=== PATIENT | female | born 1945 | race Caucasian/White ===

== ENCOUNTER 2016-10-28 06:22 | Inpatient (IN) | payer MEDICARE, OTHER ==
[~2016-10-28] VITALS: Ht 157.5 cm; Wt 84.0 kg
--- NOTE | ~2016-10-28 | DS ---
Unit #: [id number] #: [id number] Patient: ANITA MENDEZ [id number] [address] [address] [id number] I MR#: [id number] NAME: ANITA MENDEZ ROOM: 548 Age: 70 Sex: F Admission Date: 10/29/2016 : 1945 Discharge Date: 11/01/2016 Attending Physician: Devonte Lugo M.D. Primary Care Physician: Yazan Hernandez Jr., M.D. DISCHARGE SUMMARY FINAL DIAGNOSES 1. Rhabdomyolysis. 2. Generalized weakness. 3. Anemia. 4. Hypokalemia. 5. Hyponatremia. 6. SIRS secondary to evidence of infection. 7. Debilities. SECONDARY DIAGNOSES 1. Chronic obstructive pulmonary disease. 2. Rheumatoid arthritis. 3. Adrenal insufficiency. CONSULTANTS None. HOSPITAL COURSE Pleasant 70-year-old female, who had multiple falls at home who was seen and evaluated and admitted. She was diagnosed with rhabdomyolysis and hyponatremia. She was admitted and managed with IV fluids and electrolyte replacement. She was evaluated by therapy and deemed to be a good candidate for subacute rehab. Today was the day of discharge, her potassium is still at 3.2 at the time of this dictation. She will be given 40 mCi of potassium now and 40 at noon, and will transfer to rehab. Her potassium will be monitored at the rehab facility. Her magnesium level has been otherwise normal and is currently within normal limits. She will be discharged in stable condition. She still is a negative 9.6. MEDICATIONS ON DISCHARGE Will include: 1. DuoNebs every 2 hours p.r.n. shortness of breath 2. Proventil HFA two puffs q.4h p.r.n. 3. Florinef 0.5 mg p.o. daily 4. Flonase nasal two sprays in nostril daily 5. Hydrocortisone 10 mg p.o. daily 6. Spiriva one inhalation daily 7. Lovenox 40 mg subcu daily 8. Cymbalta 30 mg p.o. twice daily 9. Trazodone 150 mg at bedtime 10. Claritin 10 mg p.o. daily 11. Mirapex 0.125 mg p.o. at bedtime 12. Xanax 1 mg p.o. three times a day p.r.n. Unit #: [id number] #: [id number] Patient: ANITA MENDEZ 13. Dulera 200 mcg/5 two puffs inhalation twice daily 14. Norvasc 10 mg p.o. daily 15. Lopressor 25 mg p.o. twice daily 16. Colace 100 mg p.o. b.i.d. 17. MiraLAX 17 grams p.o. daily p.r.n. 18. Azelastine two sprays each nostril daily 19. Singulair 10 mg p.o. daily 20. Tramadol 50 mg p.o. daily p.r.n. pain 21. Nexium 40 mg p.o. daily I recommend a CBC and a BMP on 11/03/16 and this should be addressed by primary attending. Time spent coordinating discharge was about thirty-one minutes. Dictated by... Octaviano Rodriguez TD: 11/01/2016 13:51 JOB #: [id number] DISCHARGE SUMMARY Page 1 of 1 X Tracy Lee MD X DISCHARGE SUMMARY
--- NOTE | ~2016-10-28 | CR243 ---
[facility] A Service of [facility] & [facility] / [facility] RADIOLOGY TEXT RESULTS PATIENT: ANITA MENDEZ LOCATION: [facility] 548- : 45 UNIT #: [id number] AGE: [address]: Devonte Lugo MD SEX: F ORDER DR: [id number] [facility] [address] [facility] [place], [place] [address] [id number] I MR#: [id number] Acc #: [id number] NAME: ANITA MENDEZ : 1945 SEX: F STUDY DATE/TIME: 10/28/2016 8:06 UNIT: [facility] ROOM: 53631 STUDY DESCRIPTION: CR Thoracic Spine 3 Views Attending Physician: Kole Gao M.D. Ordering Physician: Zuhair Lemus M.D. Primary Care Physician: Yazan Hernandez Jr., M.D. MEDICAL IMAGING REPORT This report is preliminary unless electronic signature is present EXAM Thoracic spine series, 10/28/2016 HISTORY Fall. Pain mid/lower back, hips. Prior left hip replacement. Yesterday morning fell out of bed. Cough. FINDINGS AP and lateral views of the thoracic spine are presented. No traumatic fracture or malalignment. Vertebral body heights and intervertebral disc space heights are within normal limits. The visualized upper lumbar and lower cervical spine are unremarkable. The central lung zones appear clear. Cardiomediastinal contours within normal limits to visualized extent. Multiple surgical clips in the upper abdomen. Dictated by... Grey Stein M.D. THIS IS AN ELECTRONICALLY VERIFIED REPORT Grey Stein M.D. at 10/29/2016 7:09 PM STACEY/griselda TD: 10/28/2016 15:01 JOB #: [id number] MEDICAL IMAGING REPORT Page 1 of 1 COPY
--- NOTE | ~2016-10-28 | CR206 ---
[facility] A Service of [facility] & [facility] RADIOLOGY TEXT RESULTS PATIENT: ANITA MENDEZ LOCATION: [facility] : 45 UNIT #: [id number] AGE: [address]: Devonte Lugo MD SEX: F ORDER DR: [id number] [facility] [address] [facility] [place], [place] [address] [id number] I MR#: [id number] Acc #: [id number] NAME: ANITA MENDEZ : 1945 SEX: F STUDY DATE/TIME: 10/28/2016 8:03 UNIT: [facility] ROOM: 02060 STUDY DESCRIPTION: CR Pelvis 1 or 2 Views Attending Physician: Kole Gao M.D. Ordering Physician: Alaln Pollard Primary Care Physician: Yazan Hernandez Jr., M.D. MEDICAL IMAGING REPORT This report is preliminary unless electronic signature is present EXAM Pelvis series HISTORY Pain. Mid lower back hips history hip replacement yesterday morning. Fell out of bed, cough, hypoglycemic, asthma, left hip replacement. FINDINGS AP radiographs of the pelvis are presented. Degenerative changes lower lumbar spine. Bony ring of pelvis intact. Bilateral proximal femurs show no acute traumatic fracture. Prior orthopedic intervention proximal left femur with 2 fixation screws present. Mild narrowing bilateral hip joints. Periarticular soft tissues unremarkable. Atherosclerotic arterial calcifications. Visualized bowel gas pattern normal. Dictated by... Grey Stein M.D. THIS IS AN ELECTRONICALLY VERIFIED REPORT Grey Stein M.D. at 10/29/2016 7:09 PM STACEY/greg TD: 10/28/2016 14:32 JOB #: [id number] MEDICAL IMAGING REPORT Page 1 of 1 COPY
--- NOTE | ~2016-10-28 | HP ---
Unit #: [id number] #: [id number] Patient: ANITA MENDEZ [id number] [address] [address] [id number] I MR#: [id number] NAME: ANITA MENDEZ ROOM: 61571 Age: 70 Sex: F Admission Date: 10/28/2016 : 1945 Attending Physician: Mary Grace aGo M.D. Primary Care Physician: Yazan Hernandez Jr., M.D. HISTORY AND PHYSICAL CHIEF COMPLAINT Fall. HISTORY OF PRESENT ILLNESS The patient is a 70-year-old female with a history of a leaky valves, emphysema, arthritis, depression, anxiety, presented to the emergency room status post fall. 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 The patient fell off the bed on the floor. The patient was on the floor for approximately 23 to 24 hours. The patient was not able to reach the phone to call her daughter. The patient was found on the floor and brought to the emergency room by her daughter. The patient was found to be in acute rhabdomyolysis with a CK of 1663 and is being admitted for the above reasons. Denies any fever. Denies any chills. Denies any nausea and vomiting. PAST MEDICAL HISTORY 1. Anemia. 2. Leaky valves. 3. Emphysema. 4. Rheumatoid arthritis. 5. Depression. 6. Anxiety. PAST SURGICAL HISTORY 1. Gastric bypass. 2. Repair of gallbladder surgery. 3. Hernia. 4. Left hip fracture repair. SOCIAL HISTORY The patient denies a history of smoking, alcohol, or any illicit drug abuse. FAMILY HISTORY Reviewed and none. ALLERGIES No known drug allergies. HOME MEDICATIONS 1. Cortef. 2. Ultram. 3. Florinef. Unit #: [id number] #: [id number] Patient: ANITA MENDEZ 4. Desyrel. 5. Remeron. 6. Cymbalta. REVIEW OF SYSTEMS Positive for soreness of the muscles. Positive for fall. Negative for chills. Negative for shortness of breath. Negative for nausea and vomiting. All other systems have been reviewed and are none. PHYSICAL EXAMINATION GENERAL: Patient is lying in bed not in acute distress. VITAL SIGNS: Temperature 98.5, pulse 108, respiratory rate 21, blood pressure 131/76, saturating 97% at room air. HEENT: Head atraumatic, normocephalic. Pupils equal, round, and reactive to light and accommodation. Extraocular movements are intact. Dry mucous membranes. NECK: Supple. No jugular venous distention. LUNGS: Decreased air entry at the bases. HEART: Regular rate and rhythm. ABDOMEN: Soft. Positive bowel sounds. EXTREMITIES: No cyanosis. No clubbing. NEUROLOGIC: Alert, awake, oriented. No gross focal motor deficit. PSYCHIATRIC: Mood and affect are appropriate. DIAGNOSTIC STUDIES LABORATORY: WBC 11.3, hemoglobin 11.4, hematocrit 34.5, platelets 236,000. CPK 1663. Sodium 132, potassium 4.3, chloride 96, bicarb 22, glucose 105, BUN 13, creatinine 1.3, calcium 9.3, AST 61, ALT 24, alkaline phosphatase 41. IMAGING: Chest x-ray is negative. ASSESSMENT 1. Status post fall. 2. Rhabdomyolysis. 3. Hyponatremia. PLAN Admit the patient to observation with telemetry. Continue with IV fluids and repeat the CPK level. X-rays of the thoracic spine and lumbar spine are negative. Further recommendations will follow. Dictated by Octaviano Chen TD: 10/28/2016 15:55 JOB #: [id number] Unit #: [id number] #: [id number] Patient: ANITA MENDEZ HISTORY AND PHYSICAL Page 1 of 1 X MARY GRACE GAO MD X HISTORY AND PHYSICAL
--- NOTE | ~2016-10-28 | CR72 ---
[facility] A Service of [facility] & [facility] RADIOLOGY TEXT RESULTS PATIENT: ANITA MENDEZ LOCATION: [facility] 54- : 45 UNIT #: [id number] AGE: [address]: Devonte Lugo MD SEX: F ORDER DR: [id number] [facility] [address] [facility]. [place], [place] [address] [id number] I MR#: [id number] Acc #: [id number] NAME: ANITA MENDEZ : 1945 SEX: F STUDY DATE/TIME: 10/29/2016 12:07 UNIT: [facility] ROOM: [facility] STUDY DESCRIPTION: CR Chest Single View Portable Attending Physician: Devonte Lugo M.D. Ordering Physician: Sara Jo A.P.R.N. Primary Care Physician: Yazan Hernandez Jr., M.D. MEDICAL IMAGING REPORT This report is preliminary unless electronic signature is present EXAM Chest, portable; 10/29/2016, 1207 hours. CLINICAL HISTORY Shortness of air with cough today. History of hypertension and asthma. COMPARISON 10/28/2016 FINDINGS Portable upright film demonstrates slightly lower lung volumes than on yesterday's exam. Heart size is normal. Stable tortuous atherosclerotic aorta. There are benign calcified nodes at the right hilum. Hilar contours otherwise normal. The lungs are clear and there are no effusions. IMPRESSION The lower lung volumes than on yesterday's film. No acute cardiopulmonary findings. Dictated by... Valeria Estrella M.D. THIS IS AN ELECTRONICALLY VERIFIED REPORT Valeria Estrella M.D. at 10/30/2016 9:30 AM YULI/chicho TD: 10/29/2016 15:25 JOB #: [id number] MEDICAL IMAGING REPORT Page 1 of 1 COPY
--- NOTE | ~2016-10-28 | CR181 ---
[facility] A Service of [facility] & [facility] / [facility] RADIOLOGY TEXT RESULTS PATIENT: ANITA MENDEZ LOCATION: [facility] [address] : 45 UNIT #: [id number] AGE: [address]: Devonte Lugo MD SEX: F ORDER DR: [id number] [facility] [address] [facility] [place], [place] [address] [id number] I MR#: [id number] Acc #: [id number] NAME: ANITA MENDEZ : 1945 SEX: F STUDY DATE/TIME: 10/28/2016 8:05 [facility]: [address] STUDY DESCRIPTION: CR Lumbar Spine 2 or 3 Views Attending Physician: Kole Gao M.D. Ordering Physician: Allan Pollard Primary Care Physician: Yazan Hernandez Jr., M.D. MEDICAL IMAGING REPORT This report is preliminary unless electronic signature is present EXAM Lumbar spine series 10/28/2016 HISTORY Fall, pain mid lower back hips. HISTORY Left hip replacement. Fell out of bed, cough yesterday morning. FINDINGS AP and 3 lateral views of the lumbar spine are presented. Comparison 04/02/2015 CT. No evidence of acute traumatic fracture or malalignment. Degenerative endplate changes at multiple levels. Mild generalized narrowing intervertebral disc spaces. Mild to moderate facet degenerative changes most pronounced L4-L5, L5-S1. Visualized bony ring of pelvis intact. Evidence of prior left hip orthopedic intervention. Visualized orthopedic hardware intact. Multiple surgical clips in the upper abdomen. Visualized bowel gas pattern normal. Small portion of lung bases appear clear. Dictated by... Grey Stein M.D. THIS IS AN ELECTRONICALLY VERIFIED REPORT Grey Stein M.D. at 10/29/2016 7:09 PM STACEY/greg TD: 10/28/2016 14:40 JOB #: [id number] MEDICAL IMAGING REPORT Page 1 of 1 COPY
--- NOTE | ~2016-10-28 | CR72 ---
[facility] A Service of [facility] & [facility] / [facility] RADIOLOGY TEXT RESULTS PATIENT: ANITA MENDEZ LOCATION: [facility] [address] : 45 UNIT #: [id number] AGE: [address]: Devonte Lugo MD SEX: F ORDER DR: [id number] [facility] [address]. [place], [place] [address] [id number] I MR#: [id number] Acc #: [id number] NAME: ANITA MENDEZ : 1945 SEX: F STUDY DATE/TIME: 10/28/2016 7:57 [facility]: [address] STUDY DESCRIPTION: CR Chest Single View Portable Attending Physician: Kole Gao M.D. Ordering Physician: Zuhair [id number] Allan Lemus Primary Care Physician: Yazan Hernandez Jr., M.D. MEDICAL IMAGING REPORT This report is preliminary unless electronic signature is present EXAM Portable chest x-ray 10/28/2016 HISTORY Fall. Yesterday morning. Fell out of bed. Cough. Prior hip replacement. Pain mid and lower back hips. FINDINGS AP radiograph of the chest is presented. Comparison 01/06/2016. Suboptimal examination. Inferolateral left hemithorax not included on field of view. No acute bony abnormality. Heart normal in size. Mildly tortuous thoracic aorta. The lungs are well inflated. No evidence of acute pulmonary disease, pleural effusion or pneumothorax. No suspicious nodule. Dictated by... Grey Stein M.D. THIS IS AN ELECTRONICALLY VERIFIED REPORT Grey Stein M.D. at 10/29/2016 7:09 PM STACEY/greg TD: 10/28/2016 14:30 JOB #: [id number] MEDICAL IMAGING REPORT Page 1 of 1 COPY
[~2016-10-28 06:22] MED LIST: ACARBOSE25 MG PO; ADVAIR 500-501 EACH INH; ALBUTEROL17 GM INH; ALPRAZOLAM1 MG PO; AZOR 5/40 MG TA1 TAB PO; BENADRYL25 M3 PO; FLORINEF0.1 M1 PO; FLUCONAZOLE150 M1 PO; GAS-X80 MG PO; HYDROCORTISONE10 M1 PO; METOPROLOL TAR25 MG PO; MIRTAZAPINE45 MG PO; MONTELUKAST SOD10 MG PO; PREDNISONE5 M1 PO; SPIRIVA18 MCG INH; TRAMADOL HCL50 M1 PO; TRAZODONE HCL150 MG PO
[2016-10-28 08:47] LABS: BASOPHIL# 0.1 X10e3 (0-0.3); BASOPHIL% 0.5 % (0-2.5); EOSINOPHIL# 0.1 X10e3 (0-0.7); EOSINOPHIL% 0.5 % (0.0-7.0); HEMATOCRIT 34.5 % (35.0-45.0); HEMOGLOBIN 11.4 gm/dL (12.0-16.0); LYMPHOCYTE# 0.5 X10e3 (1.0-3.5); LYMPHOCYTE% 4.2 % (17.0-45.0); MEAN CELL VOLUME 79.6 FL (83-96); MEAN CORPUSCULAR HEMOGLOBIN 26.3 PG (28-34); MEAN CORPUSCULAR HGB CONC 33.1 g/dL (30-36); MONOCYTE# 0.7 X10e3 (0-1.0); MONOCYTE% 6.2 % (3.0-12.0); NEUTROPHIL% 88.6 % (40-75); PLATELET COUNT 236 X10e3 (140-420); RED BLOOD COUNT 4.34 X10e (3.90-5.30); WHITE BLOOD COUNT 11.3 X10e3 (4.0-10.5)
[2016-10-28 08:49] LABS: DIFF IND NO
[2016-10-28 09:37] LABS: ALBUMIN SERUM 4.1 g/dL (3.5-5.0); BILIRUBIN, DIRECT 0.2 mg/dL (0.0-0.2); BILIRUBIN,INDIRECT 0.9 mg/dL (0.0-0.9); BILIRUBIN,TOTAL 1.1 mg/dL (0.2-2.0); CALCIUM SERUM 9.3 mg/dL (8.4-10.2); CREATININE SERUM 1.3 mg/dL (0.6-1.4); GLOM FILT RATE Estimated 41.5 mL/min (>60); POTASSIUM 4.3 mmol/L (3.5-5.1)
[2016-10-28] MEDS ORDERED: CYMBALTA30 M1 PO (11:26)
[2016-10-28] MEDS ORDERED: PATIENT'S PHARMACY (11:26)
[2016-10-28] MEDS ORDERED: CORTEF10 MG PO (11:27)
[2016-10-28] MEDS ORDERED: FLORINEF0.1 M1 PO (11:27)
[2016-10-28] MEDS ORDERED: ULTRAM PO (11:27)
[2016-10-28] MEDS ORDERED: REMERON PO (11:27)
[2016-10-28] MEDS ORDERED: DESYREL150 M1 PO (11:27)
[2016-10-29] MEDS ORDERED: BICARSIM80 MG PO (03:47)
[2016-10-29] MEDS ORDERED: AMLODIPINE-ATO1 EAC2 PO (03:48)
[2016-10-29 05:51] LABS: HEMATOCRIT 31.5 % (35.0-45.0); HEMOGLOBIN 10.4 gm/dL (12.0-16.0); MEAN CELL VOLUME 80.5 FL (83-96); MEAN CORPUSCULAR HEMOGLOBIN 26.5 PG (28-34); MEAN CORPUSCULAR HGB CONC 32.9 g/dL (30-36); MEAN PLATELET VOLUME 8.3 FL (6.5-11.5); RED BLOOD COUNT 3.91 X10e (3.90-5.30); RED CELL DISTRIBUTION WIDTH 15.5 % (11.0-15.5); WHITE BLOOD COUNT 6.9 X10e3 (4.0-10.5)
[2016-10-29 06:29] LABS: CALCIUM SERUM 8.1 mg/dL (8.4-10.2); CREATININE SERUM 0.8 mg/dL (0.6-1.4); GLOM FILT RATE Estimated 74.8 mL/min (>60); POTASSIUM 3.8 mmol/L (3.5-5.1)
[2016-10-29] MEDS ORDERED: CYMBALTA PO (12:42)
[2016-10-29] MEDS ORDERED: MIRALAX17 G2 PO (12:43)
[2016-10-29] MEDS ORDERED: ADVAIR 500-501 EACH INH (12:43)
[2016-10-29] MEDS ORDERED: AZELASTINE137 MCG/0. (12:44)
[2016-10-29] MEDS ORDERED: NASONEX17 GM (12:44)
[2016-10-29] MEDS ORDERED: SPIRIVA18 MCG INH (12:45)
[2016-10-29] MEDS ORDERED: ALBUTEROL17 GM INH (12:45)
[2016-10-29] MEDS ORDERED: ALPRAZOLAM1 MG PO (12:46)
[2016-10-29] MEDS ORDERED: CLARITIN10 M3 PO (12:46)
[2016-10-29] MEDS ORDERED: PRAMIPEXOLE0.125 MG PO (12:47)
[2016-10-29] MEDS ORDERED: AMLODIPINE-OLM1 EAC3 PO (12:47)
[2016-10-29] MEDS ORDERED: SINGULAIR PO (12:48)
[2016-10-29] MEDS ORDERED: DIOCTO PO (12:48)
[2016-10-29] MEDS ORDERED: TRAZODONE HCL150 MG PO (12:48)
[2016-10-29] MEDS ORDERED: HYDROCORTISONE10 M1 PO (12:49)
[2016-10-29] MEDS ORDERED: FLORINEF0.1 M1 PO (12:49)
[2016-10-29] MEDS ORDERED: ACCU-CHEK1 EAC1 SUBQ (12:50)
[2016-10-29] MEDS ORDERED: NEXIUM PO (12:50)
[2016-10-29 14:39] LABS: %MB 2.5 % (0.0-4.0); MB 13.1 ng/ml
[2016-10-30 06:23] LABS: HEMATOCRIT 28.5 % (35.0-45.0); HEMOGLOBIN 9.4 gm/dL (12.0-16.0); MEAN CELL VOLUME 79.9 FL (83-96); MEAN CORPUSCULAR HEMOGLOBIN 26.3 PG (28-34); RED BLOOD COUNT 3.56 X10e (3.90-5.30); WHITE BLOOD COUNT 5.1 X10e3 (4.0-10.5)
[2016-10-30 07:38] LABS: CALCIUM SERUM 7.8 mg/dL (8.4-10.2); CREATININE SERUM 0.7 mg/dL (0.6-1.4); GLOM FILT RATE Estimated 87.8 mL/min (>60); MAGNESIUM 1.6 mg/dL (1.6-3.0); POTASSIUM 3.2 mmol/L (3.5-5.1)
[2016-10-31 05:10] LABS: HEMATOCRIT 28.1 % (35.0-45.0); HEMOGLOBIN 9.4 gm/dL (12.0-16.0); MEAN CELL VOLUME 78.9 FL (83-96); MEAN CORPUSCULAR HEMOGLOBIN 26.5 PG (28-34); MEAN CORPUSCULAR HGB CONC 33.6 g/dL (30-36); RED BLOOD COUNT 3.56 X10e (3.90-5.30); RED CELL DISTRIBUTION WIDTH 15.2 % (11.0-15.5); WHITE BLOOD COUNT 3.7 X10e3 (4.0-10.5)
[2016-10-31 05:42] LABS: BUN/CREATININE RATIO 6.25; CALCIUM SERUM 7.9 mg/dL (8.4-10.2); CREATININE SERUM 0.8 mg/dL (0.6-1.4); GLOM FILT RATE Estimated 74.8 mL/min (>60); MAGNESIUM 1.7 mg/dL (1.6-3.0)
[2016-10-31 05:43] LABS: POTASSIUM 2.7 mmol/L (3.5-5.1)
[2016-10-31 10:28] LABS: URINE SOURCE CATH
[2016-10-31 10:42] LABS: URINE APPEARANCE CLEAR; URINE BILIRUBIN NEG (NEG); URINE BLOOD NEG (NEG); URINE COLOR YELLOW; URINE GLUCOSE NEG (NEG); URINE KETONE 1+ (NEG); URINE LEUKOCYTE ESTERASE NEG (NEG); URINE NITRATE NEG (NEG); URINE PH 5.5 (5-8); URINE PROTEIN NEG (NEG); URINE SPECIFIC GRAVITY 1.009 (1.003-1.035); URINE UROBILINOGEN 0.2 MG/DL (NEG)
[2016-10-31 10:49] LABS: CULTURE INDICATED? NO
[2016-11-01 05:36] LABS: HEMATOCRIT 28.3 % (35.0-45.0); HEMOGLOBIN 9.6 gm/dL (12.0-16.0); MEAN CELL VOLUME 78.7 FL (83-96); MEAN CORPUSCULAR HEMOGLOBIN 26.6 PG (28-34); MEAN CORPUSCULAR HGB CONC 33.8 g/dL (30-36); MEAN PLATELET VOLUME 7.8 FL (6.5-11.5); RED BLOOD COUNT 3.6 X10e (3.90-5.30); WHITE BLOOD COUNT 4.5 X10e3 (4.0-10.5)
[2016-11-01 06:31] LABS: BUN/CREATININE RATIO 7.77; CREATININE SERUM 0.9 mg/dL (0.6-1.4); GLOM FILT RATE Estimated 64.8 mL/min (>60); POTASSIUM 3.2 mmol/L (3.5-5.1)
== END 2016-11-01 16:45 | DRG 558 ==
LOC: CED 06:22 → CEDOF 12:55 → CED 13:22 → CEDOF 13:22 → C5B 17:41 → CEDOF 18:00 → C5B 18:00 → CED 18:00 → C5B 10-29 06:46 → CEDOF 10-29 11:33 → C5B 11-01 16:45
PROVIDERS: Emergency Medicine; Family Medicine; Internal Medicine; Nurse Practitioner
DX: M62.82 Rhabdomyolysis (principal); E27.40 Unspecified adrenocortical insufficiency; J44.9 Chronic obstructive pulmonary disease, unspecified; E87.1 Hypo-osmolality and hyponatremia; D64.9 Anemia, unspecified; E87.6 Hypokalemia; M06.9 Rheumatoid arthritis, unspecified; R53.81 Other malaise; F41.9 Anxiety disorder, unspecified; F32.9 Major depressive disorder, single episode, unspecified
CPT/HCPCS: 36415; 71010; 72072; 72100; 72170; 80048; 80076; 81003; 82550; 82553; 82947; 83735; 84132; 85025; 85027; 94640; 94664; 94760; 97110; 97116; 97162; 97165; 97530; 99285; G8978-GP; G8979-GP; G8987-GO; G8988-GO; J1650; J3475